=== PATIENT | female | born 1995 | race Caucasian/White ===

== ENCOUNTER 2016-10-07 19:59 | Emergency (ER) | payer BC, OTHER ==
[~2016-10-07] VITALS: Ht 142.2 cm; Wt 60.0 kg
[2016-10-07 20:50] VITALS: Ht 142.2 cm; Wt 60.0 kg
--- NOTE | 2016-10-07 21:24 | ERA ---
ER Documentation Chief Complaint Date/Time DATE: 10/07/16 TIME: 21:24 Chief Complaint Back pain fell on the stairs HPI The patient is a 21-year-old presenting to the ER because of upper back pain after she fell about a week ago against the stairway. The pain is not getting better, however she does not take any medication. The pain is worse with movement. She denies any other injury, headache, neck pain, chest pain, dyspnea , abdominal pain, vomiting, dysuria, diarrhea. She does not smoke does not drink Past medical/surgical history: None ROS All systems reviewed and are negative except as per history of present illness. Medications Home Meds Active Scripts Ibuprofen* (Motrin*) 600 Mg Tab, 600 MG PO Q6H Y for PAIN AND OR ELEVATED TEMP, #30 TAB Prov:STEWART REYES MD 10/07/16 Allergies Allergies: Coded Allergies: No Known Allergy (Unverified , 10/07/16) PMhx/Soc Medical and Surgical Hx: pt denies Medical Hx, pt denies Surgical Hx Hx Psychiatric Problems: No Hx Miscellaneous Medical Probl: No Hx Alcohol Use: No Hx Substance Use: No Hx Tobacco Use: No Smoking Status: Never smoker Physical Exam Vitals Vital Signs Date Time Temp Pulse Resp B/P Pulse Ox O2 Delivery O2 Flow Rate FiO2 10/07/16 20:50 98.2 82 20 135/88 100 Physical Exam Const: No acute distress. Head: Atraumatic. Eyes: Normal Conjunctiva. ENT: Normal External Ears, Nose and Mouth. Neck: Full range of motion. No meningismus. Resp: Clear to auscultation bilaterally. Cardio: Regular rate and rhythm, no murmurs. Abd: Soft, non distended, normal bowel sounds, non tender. Skin: No petechiae or rashes. Back: No midline or flank tenderness. Minimal thoracic discomfort, no erythema, no crepitus, no point tenderness Ext: No cyanosis, or edema. Neur: Awake and alert. No focal deficit Psych: Normal Mood and Affect. Procedures/MDM [place] [id number] Radiology Main Line: [phone] DIAGNOSTIC IMAGING REPORT Patient: ISRAEL MEIER : 1995 Age: 21 Sex: F MR #: [id number] DOS: 10/07/16 2140 Ordering MD: STEWART REYES MD Location: [facility] Room/Bed: PROCEDURE: XR Thoracic Spine. CLINICAL INDICATION: Back pain. TECHNIQUE: AP and lateral views of the thoracic spine are available for review. COMPARISON: None available FINDINGS: There is normal kyphosis of thoracic spine. The alignment is unremarkable. There is no acute fracture. The disk heights are normal. The paravertebral soft tissues are unremarkable. IMPRESSION: 1. No acute fracture or traumatic subluxation. RPTAT: HFN .Zuri Prather MD, MD Date Time Electronically viewed and signed by .Zuri Prather MD, MD on 10/07/2016 22: 42 .N/ CC: STEWART REYES MD MEDICAL MAKING DECISION: The patient is a 21-year-old female, presenting with acute back pain after a mechanical fall. The differential diagnoses considered include but are not limited to caudal equina syndrome, spinal abscess, DJD, diskitis, lumbar radiculopathy. Departure Diagnosis: Primary Impression: Back pain Condition: Good Comments She was discharged with Motrin I discussed the findings with the patient. I advised the patient to follow-up with the primary physician in about 5-7 days, sooner if needed and return if any concern. The patient's blood pressure was elevated (>120/80) but appears stable without evidence of hypertension emergency or urgency. The patient was counseled about the risks of hypertension and urged to pursue outpatient monitoring and therapy within a week with their primary care physician. STEWART REYES MD Oct 07, 2016 21:24
--- NOTE | 2016-10-07 22:43 | RADRPT ---
PROCEDURE: XR Thoracic Spine. CLINICAL INDICATION: Back pain. TECHNIQUE: AP and lateral views of the thoracic spine are available for review. COMPARISON: None available FINDINGS: There is normal kyphosis of thoracic spine. The alignment is unremarkable. There is no acute fracture. The disk heights are normal. The paravertebral soft tissues are unremarkable. IMPRESSION: 1. No acute fracture or traumatic subluxation. RPTAT: HFN .Zuri Prather MD, MD Date Time Electronically viewed and signed by .Zuri Prather MD, on 10/07/2016 22:42 .N/
[2016-10-07] MEDS ORDERED: IBUP-1542 PO (22:51)
[2016-10-07 23:41] VITALS: BP 128/70; PULSE 76; RESP 20; TEMP 98
== END 2016-10-07 23:42 | disposition home or self-care (01) ==
LOC: FTE 19:59
DX: S29.9XXA Unspecified injury of thorax, initial encounter (principal); W10.9XXA Fall (on) (from) unspecified stairs and steps, initial encounter; Y92.9 Unspecified place or not applicable
CPT/HCPCS: 72072; Z7502